=== PATIENT | female | born 2000 | race Caucasian/White ===

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

== ENCOUNTER 2022-01-02 01:34 | Emergency (ER) | payer OTHER ==
[~2022-01-02] VITALS: Ht 172.7 cm; Wt 75.0 kg
[2022-01-02 04:00] VITALS: BP 124/74
== END 2022-01-02 05:49 | disposition home or self-care (01) ==
LOC: EMS 01:39
DX: M25.562 Pain in left knee (principal); V49.50XA Passenger injured in collision with unspecified motor vehicles in traffic accident, initial encounter; Y93.89 Activity, other specified; Y92.89 Other specified places as the place of occurrence of the external cause; Y99.8 Other external cause status
CPT/HCPCS: 99281; Z7502